=== PATIENT | male | born 1940 | race Caucasian/White ===

== ENCOUNTER 2017-09-13 09:30 | Outpatient (RCR) | payer MEDICARE, SELFPAY ==
--- NOTE | 2017-08-23 12:15 | HP.PTEVAL ---
Patient's Visit Information GILBERT ROMO is a 77 year old M referred to Physical Therapy by VIKTORIYA LEIVA with a diagnosis of L forearm pain. Date of Evaluation: 08/23/17 Physical Therapist: Adele Le - Visit Plan Frequency: 2x /Week Duration: 4 Weeks Plan: 2X/ week for 3 weeks for L elbow and wrist strengthening, may incorporate postural and shoutlder strength, modalities and MT for pain control with HEP - Subjective Subjective: This elbow pain started last April. If he would roll his elbow on the table he would get elbow pain. and then the pain went away. Then a few weeks ago he would get medial olecranon pain. He feels the pain when he pushes down to get up from a chair. Dr said to take IBprof as necessary and then take PT and then go to orthopedic if no better. Only did x-rays the first time. Not sure what it showed. Pt has a physical in a few weeks with MD. The pt has no neck pain. Occ he has R arm tingling sesation but not consistent. 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 His arm has not slowed him down at all. - Pain L elbow pain Pain Intensity (Out of 10): 0 Pain Intensity Range: 4 - Objective UE AROM elbow and shoulder are WFL. B shld flex 4/5 and B shld abd 4/5, L bicep 4-/5 and R 4/5, L tricep 4/5 and R 4/5, L wrist extension 4-/5 and R, R wrist flex 4/5, L pronation (+ weird feeling/ache and slight weakness with pronation on the L) R pronation 4/5, - Goals Goal 1:: I HEP Goal Time Frame: 4-6 Weeks Goal 2:: Decrease L elbow pain when pushing self up from a seated position to 1/10 50% of the time Goal Time Frame: 4-6 Weeks Goal 3:: Increase L pronation and wrist flexion strength to 4/5 without pain with MMT testing Goal Time Frame: 4-6 Weeks - Rehabilitation Potential Rehabilitation Potential: Good - Anticipated Interventions Patient/Client Instruction: Educate patient on: Condition, Plan of Care For the Purpose of:: To decrease pain, To increase ROM, To improve nutrient delivery to tissue, To improve muscle performance and motor function, To improve ability to perform ADL's, To increase tolerance to activity/condition/position, To improve performance and independence with ADL's, To improve health of tissue Therapeutic Exercise to Include: Strength training, Postural training, Active ROM, Scapular Strength/Stabilization For the Purpose of:: To decrease pain, To increase ROM, To improve nutrient delivery to tissue, To improve muscle performance and motor function, To improve ability to perform ADL's, To improve performance and independence with ADL's, To decrease level of supervision to perform tasks Manual Therapy Techniques to Include: Soft tissue mobilization For the Purpose of:: To decrease pain, To increase ROM, To improve nutrient delivery to tissue Cryotherapy (ice pack, ice massage): Yes Thermo therapy (hot pack): Yes Ultrasound (thermal/non thermal): Yes For the Purpose of:: To decrease pain, To increase ROM, To improve nutrient delivery to tissue Thank you for the opportunity to evaluate your patient. For Medicare and Medicare HMO plans, please review the plan of care and approve it. It will need to be FAXED BACK to us at [phone] for Medicare purposes. Please let me know if there are questions or concerns regarding this plan of care. Physician Signature: Date:
--- NOTE | 2017-09-13 10:04 | HP.PTDCSUM ---
HP - PT D/C Summary It has been my pleasure to treat GILBERT ROMO under orders from AARON VASQUEZ MICHELLE for the diagnosis of L forearm pain for a total of 7 visit(s). Discharge Date: 09/13/17 Please see the following information for a summary of their discharge status. - Subjective Subjective: Pt reports that he overall thinks it is getting better. Dr thinks that his elbow will clear up on its own. He reports that he usually has no pain after his PT appointments and then a little sore the next day. He reports that he wants to be done with PT at this time and see how this goes as he has lots of other Dr appointments. Somedays it doesnt bother him at all. Pt reports that he can do his exercises at home with wights and or orange t-band - Pain L elbow pain Pain Intensity (Out of 10): 3 - Overall Improvement % Improvement: 25 - Objective Objective/Function: Pt reports that he can do most of these exercises at [facility] and wants to continue to do that. - Goals Goal 1:: I HEP Goal Progress: Goal Met Goal 2:: Decrease L elbow pain when pushing self up from a seated position to 1/10 50% of the time Goal Progress: Goal Met Goal 3:: Increase L pronation and wrist flexion strength to 4/5 without pain with MMT testing Goal Progress: Goal Met - Plan Plan: DC PT to HEP but if pain worsesns or comes back. Will be happy to see pt back in PT with a new order if happens to worsen or come back. - D/C Information Discharge Comments: DC PT to HEP If there are questions or concerns regarding this patient's physical therapy, please feel free to call me at [phone]. Thank you for the referral of this patient. Sincerely, Adele Le
== END 2017-09-13 19:00 | disposition home or self-care (01) ==
LOC: PT 09:30
PROVIDERS: Family Provider Family Medicine; PCP Family Medicine
DX: M25.522 Pain in left elbow (principal)
CPT/HCPCS: 97110; 97140; 97161; 97530

== ENCOUNTER → 2020-03-10 09:40 | Outpatient (CLI) | payer MEDICARE, SELFPAY ==
[2017-04-07 21:52] VITALS: BMI 29.2
[2020-03-10 10:40] LABS: PSA,Total- Diagnostic 0.37 ng/mL (0.0-4.0)
== END ==
PROVIDERS: Referring Provider Urology; Visit Provider Urology
DX: C61 Malignant neoplasm of prostate (principal)
CPT/HCPCS: 36415; 84153

== ENCOUNTER → 2020-08-27 12:24 | Outpatient (CLI) | payer MEDICARE, SELFPAY ==
[2020-08-27 12:49] LABS: Hematocrit 38.4 % (40-54); Hemoglobin 13.7 g/dL (13.0-16.5); Mean Corp Hgb Conc 35.7 g/dL (32-36); Mean Corpuscular Hgb 36.1 pg (27.0-32.0); Mean Corpuscular Volume 101.3 fL (80-94); Mean Platelet Vol. 10.2 fl (6.2-12.0); Platelet Count 210 K/mm3 (150-450); RBC Distribution Width CV 13.2 % (11.6-14.6); RBC Distribution Width SD 47.5 fl (35.1-43.9); Red Blood Count 3.79 M/mm3 (4.6-6.2)
[2020-08-27 13:07] LABS: Vitamin D,25 Hydroxy 43.8 ng/mL
[2020-08-27 13:11] LABS: ALB/GLOB Ratio 1.2 RATIO (0.9-2.4); AST(SGOT) 16 U/L (15-37); Alanine Aminotransfer ALT/SGPT 24 U/L (16-61); Albumin, Serum 3.9 g/dL (3.2-5.0); Alkaline Phosphatase 82 U/L (45-117); Anion Gap 7 (5-15); BUN 16 mg/dL (7-18); BUN/Creat Ratio 15.7 RATIO (10-20); Calcium,Total 9.1 mg/dL (8.5-10.1); Chloride 106 mmol/L (98-107); Cholesterol 174 mg/dL (200); Creatinine, Serum 1.02 mg/dL (0.70-1.30); EST Glomerular Filtration Rate 75 mL/min (>60); Est Glom Filt Rate - Afr Amer 91 mL/min (>60); Globulin 3.3 g/dL (2.2-4.2); Glucose 95 mg/dL (74-106); High Density Lipoprotein 51 mg/dL; PSA,Total- Diagnostic 0.61 ng/mL (0.0-4.0); Protein, Total 7.2 g/dL (6.4-8.2); Sodium Level 140 mmol/L (136-145); Triglycerides 92 mg/dL; Very Low Density Lipoprotein 18 mg/dL (5-40)
== END ==
PROVIDERS: Referring Provider Nurse Practitioner Family; Visit Provider Nurse Practitioner Family
DX: C61 Malignant neoplasm of prostate (principal); E55.9 Vitamin D deficiency, unspecified; E78.5 Hyperlipidemia, unspecified
CPT/HCPCS: 80053; 80061; 82306; 84153; 85027

== ENCOUNTER → 2020-09-10 12:29 | Outpatient (CLI) | payer MEDICARE, SELFPAY ==
[2017-04-07 21:52] VITALS: BMI 29.2
[2020-09-10 13:04] LABS: PSA,Total - Annual Screen 0.58 ng/mL (0.00-4.00)
== END ==
PROVIDERS: Referring Provider Family Medicine; Visit Provider Family Medicine
DX: C61 Malignant neoplasm of prostate (principal); Z12.5 Encounter for screening for malignant neoplasm of prostate
CPT/HCPCS: 84153; G0103

== ENCOUNTER → 2022-03-08 | Outpatient (CLI) | payer MEDICARE, SELFPAY ==
[2022-03-08 12:09] LABS: PSA,Total- Diagnostic 0.84 ng/mL (0.0-4.0)
== END | disposition home or self-care (01) ==
PROVIDERS: PCP Family Medicine; Visit Provider Urology
DX: C61 Malignant neoplasm of prostate (principal)
CPT/HCPCS: 36415; 84153

== ENCOUNTER 2022-07-08 14:20 | Observation (INO) | payer MEDICARE, SELFPAY ==
[2022-07-08 14:22] VITALS: BP 158/70; PULSE 100; RESP 16; TEMP 36.4; O2SAT 99; BMI 27.8
--- NOTE | 2022-07-08 14:30 | CT_ITS ---
STUDY: CT BRAIN WITHOUT CONTRAST REASON FOR EXAM: Male, 82 years old. 2 hour history of dizziness with vomiting. RADIATION DOSAGE (If Supplied By Facility): CTDIvol = ( 44.99 ) mGy, DLP = ( 863.60 ) mGycm TECHNIQUE: Transaxial CT imaging of the brain was performed without administration of intravenous contrast material. Individualized dose optimization techniques were used for this CT. COMPARISON: Comparison is made with prior study dated 12/20/2013. FINDINGS: Normal soft tissue structures. Normal calvarium. There is mild cerebral atrophy with widening of the extra-axial spaces and ventricular dilatation. There are areas of decreased attenuation within the white matter tracts of the supratentorial brain, consistent with microvascular disease changes. Normal basal ganglia and thalami. Normal brainstem. Normal cerebellum. There is no intracranial hemorrhage. There are no findings of an acute ischemic infarction. Mild mucosal thickening of the ethmoid sinuses slightly more prominent on the left side. CT/Brain/Head without Contrast IMPRESSION: Chronic involutional changes of the brain. Electronically Signed: Jose Doe MD at 15:06 EST ,
--- NOTE | 2022-07-08 14:32 | EDS_ITS ---
HPI History of Present Illness Chief Complaint: Dizziness Informant: patient Onset/Context/Timing Onset: Hours (about 2 hrs ago as estimated by the pt) Context: Sudden Onset Timing: Waxes and wanes Quality: spinning, moving, lightheadedness Location: head Current Severity: Moderate Maximum Severity: Severe Worsened by: movement I think Relieved by: nothing Associated Symptoms Associated Symptoms: n/v, weak all over Narrative Narrative: Patient presents for extreme dizziness and vomiting. He is a very poor historian, he states he does not feel well because of this. He felt fine a couple hours ago before this started, he states he was in [place] trying to get some gauges tested for some type of steam engine, he states he was walking to the bathroom and started feeling dizzy all of a sudden, it has been waxing and waning since then, he drove himself here from there [place], states he has had this before, he states it was vertigo when he had it before, but cannot say it is the same thing now, he states he feels like things are moving and he feels lightheaded. He has had no loss of consciousness today. He denies any headaches. He denies any peripheral numbness or focal weakness or changes in his vision, but states now that he is here he is starting to have some decreased hearing although he has chronic tinnitus that is unchanged. He states he takes aspirin on occasion, and happened to take it this morning because I was having headaches and then when trying to discern how often he takes aspirin, he states his doctor put him on it 20 years ago but then admits that he does not take it every day. Patient answers lots of questions with maybe, I do not know, is very difficult to get details out of him when reviewing details of his symptoms today. He does state that he has been on an antibiotic for the past 2 weeks because of infected wounds on his right lower leg, he states still a little red and sore but gradually improving. [facility] Medical History (Updated 07/08/22 @ 16:[address] Ayaan Watson MD) BPPV (benign paroxysmal positional vertigo) Dizziness History of prostate cancer Home Medications aspirin 81 mg chewable tablet 81 mg PO DAILY@0800 06/22/13 [History Last Taken 0 11/26/16] cholecalciferol (vitamin D3) 50 mcg (2,000 unit) tablet (Vitamin D3) 2,000 unit PO DAILY 06/22/13 [History Last Taken 11/26/16] bicalutamide 50 mg tablet 50 mg PO DAILY PROSTATE 07/08/22 [History Last Taken 07/08/22] cephalexin 500 mg capsule 500 mg PO 4XD ANTIBIOTIC 07/08/22 [History Last Taken 07/08/22] cyanocobalamin (vitamin B-12) 100 mcg tablet 100 mcg PO DAILY SUPPLEMENT 07/08/22 [History Last Taken 07/08/22] multivitamin 1 tab PO DAILY SUPPLEMENT 07/08/22 [History Last Taken 07/08/22] sulfamethoxazole 800 mg-trimethoprim 160 mg tablet 1 tab PO BID ANTIBIOTIC 07/08/22 [History Last Taken 07/08/22] Allergy/AdvReac Type Severity Reaction Status Date / Time No Known Allergies Allergy Verified 07/08/22 14:26 Social History Smoking Status: Never smoker ROS [facility] ED Constitutional Constitutional ED: Reports malaise; Denies chills or fever(s) Eyes Eyes: Denies change in vision or diplopia ENT ENT ED: Reports as per HPI, tinnitus and vertigo; Denies ear pain, rhinorrhea or sore throat Cardiovascular Cardiovascular: Reports lightheadedness; Denies chest pain, leg edema or palpitations Respiratory/Chest Respiratory/Chest: Denies cough or dyspnea Gastrointestinal Gastrointestinal: Reports nausea and vomiting; Denies abdominal pain or diarrhea Genitourinary Genitourinary ED: Denies dysuria or hematuria Musculoskeletal Musculoskeletal: Denies back pain or neck pain Integumentary Reports as per HPI, rash and wounds; Denies abscess Neurologic Neurologic: Denies headache(s), paresthesias or weakness Psychiatric Psychiatric: Denies anxiety or suicidal thoughts EXAM Physical Exam Const Vital Signs: 07/08/22 14:22 07/08/22 14:42 07/08/22 16:21 Temperature 97.5 F L Temperature Source Temporal Pulse Rate 100 79 Respiratory Rate 16 15 Respiratory Effort Normal Non-Labored Respiratory Pattern Normal Blood Pressure 158/70 H 125/61 H Blood Pressure Mean 99 82 Pulse Ox 99 100 Oxygen Delivery Method Room Air Room Air 07/08/22 16:50 Temperature 97.6 F L Temperature Source Oral Pulse Rate 69 Respiratory Rate 17 Respiratory Effort Respiratory Pattern Blood Pressure 124/63 H Blood Pressure Mean 83 Pulse Ox 100 Oxygen Delivery Method Room Air Positive well nourished and well developed Constitutional Narrative: Appears very malaised but alert and in no distress General Appearance ED: well developed and NAD HEENT Reports moist mucous membranes HEENT Narrative: TMs and EACs normal bilaterally normocephalic and atraumatic Eyes PERRL and EOMs intact bilaterally Eyes Narrative: No pathologic horizontal or vertical/rotatory nystagmus Neck full ROM and supple Neck Narrative: No meningismus but does not want to move his head because of dizziness Chest Wall inspection of chest normal and palpation of chest normal Resp normal respiratory effort and clear to auscultation bilaterally Cardio regular rate, regular rhythm and no murmurs Rate: other Other Details: Occasional irregularity, occurring frequently but for the most part rhythm is regular GI non-tender and non-distended Auscultation: normoactive bowel sounds Palpation: soft Back/Spine no CVA tenderness General Back: other FROM Extremity normal to inspection General Extremety ED: Negative for edema, pulses abnormal or tenderness General Extremity: Negative for edema or pulses abnormal Neuro oriented x3, CN's II-XII intact bilaterally and no sensory deficits noted Neuro Narrative: Normal [id number] and [id number] bilaterally. NIHSS 0 Sensorium / Orientation: awake and alert Motor Exam: strength 5/5 throughout Skin Skin Narrative: 2 scabbed wounds that are superficial anterior right distal lower leg not involving the ankle joint, there is surrounding erythema with a skin marking pen line drawn around it, the erythema is well within the skin line and a little away from it, no major tenderness, no palpable subcutaneous emphysema no edema no distention of any compartments in the right lower extremity. MDM MDM MDM Narrative Medical decision making narrative: Patient appears to be very vertiginous and feeling very poorly. He states the symptoms are severe and he cannot move. Work-up shows a negative CT. I do not know if this is central or peripheral, my exam is very limited on this gentleman. He does not want to move. He said it was relatively sudden onset and severe lending itself more toward peripheral etiology especially with the hearing disturbance he is having acutely. He was given Zofran and meclizine after passing a dysphagia screen, he did feel little improved but he was way too unsteady to walk on his own or drive himself home, saying he still very symptomatic although he is no longer vomiting. I believe that his hypokalemia may be due to hyperventilation as the patient was miserable and anxious upon arrival, as opposed to GI losses since he had just been vomiting for an hour or so. Discussed with Dr. Calhoun Hospitalist for admission to observation. Lab Data Attestation: I reviewed the patient's lab results. Labs: Laboratory Results - last 24 hr 07/08/22 07/08/22 14:30 14:30 WBC 7.6 RBC 3.90 L Hgb 13.2 Hct 37.8 L MCV 96.9 H MCH 33.8 H MCHC 34.9 RDW Std Deviation 45.1 H RDW Coeff of Sweta 12.7 Plt Count 244 MPV 9.9 Immature Gran % (Auto) 0.300 Neut % (Auto) 68.3 Lymph % (Auto) 20.1 [place] % (Auto) 7.9 Eos % (Auto) 2.5 Baso % (Auto) 0.9 Absolute Neuts (auto) 5.2 Absolute Lymphs (auto) 1.53 Nucleated RBC % 0 Sodium 138 Potassium 3.3 L Chloride 105 Carbon Dioxide 19.0 L Anion Gap 14 BUN 20 H Creatinine 1.49 H Estim Creat Clear Calc 42.68 Est GFR (MDRD) Af Amer 58 L Est GFR (MDRD) Non-Af 48 L BUN/Creatinine Ratio 13.4 Glucose 167 H Calcium 9.3 Radiography Diagnostic Testing: Clinical Impression(s) from Imaging Studies Brain CT 07/08/22 14:30 IMPRESSION: Chronic involutional changes of the brain. Electronically Signed: Jose Doe MD at 15:06 EST , Discharge Plan Dx/Rx/DC Orders Clinical Impression: Acute severe vertigo Disposition Disposition: Acute Care [facility]
[2022-07-08] MEDS: Ondansetron 4 MG/2 ML Vial IV (14:36)
[2022-07-08] MEDS: Meclizine HCl 25 MG Tablet PO (14:37)
[2022-07-08 14:39] LABS: Absolute Lymphocyte Count 1.53 X10^3/uL (0.83-4.51); Absolute Neutrophil Count 5.2 X10^3/uL (2.0-7.7); Basophil# 0.07 X10^3/uL; Basophil% 0.9 % (0-1); Eosinophil# 0.19 X10^3/uL; Eosinophils% 2.5 % (0-5); Hematocrit 37.8 % (40-54); Hemoglobin 13.2 g/dL (13.0-16.5); Lymphocyte # 1.53 X10^3/ul (0.83-4.51); Lymphocyte % 20.1 % (19-41); Mean Corp Hgb Conc 34.9 g/dL (32-36); Mean Corpuscular Hgb 33.8 pg (27.0-32.0); Mean Corpuscular Volume 96.9 fL (80-94); Mean Platelet Vol. 9.9 fl (6.2-12.0); Monocyte% 7.9 % (0-10); NRBC Flagged by Analyzer 0 % (0-5); Neutrophil # 5.21 X10^3/uL (2.7-7.7); Neutrophil % 68.3 % (47-70); Platelet Count 244 K/mm3 (150-450); RBC Distribution Width CV 12.7 % (11.6-14.6); RBC Distribution Width SD 45.1 fl (35.1-43.9); White Blood Count 7.6 K/mm3 (4.4-11.0)
[2022-07-08 15:01] LABS: Anion Gap 14 (5-15); BUN 20 mg/dL (7-18); BUN/Creat Ratio 13.4 RATIO (10-20); Calcium,Total 9.3 mg/dL (8.5-10.1); Chloride 105 mmol/L (98-107); Creatinine, Serum 1.49 mg/dL (0.70-1.30); EST Glomerular Filtration Rate 48 mL/min (>60); Est Glom Filt Rate - Afr Amer 58 mL/min (>60); Estimated Creatinine Clearance 42.68 ml/min; Glucose 167 mg/dL (74-106); Potassium 3.3 mmol/L (3.5-5.1); Sodium Level 138 mmol/L (136-145)
[2022-07-08 16:21] VITALS: BP 125/61; PULSE 79; RESP 15; O2SAT 100
--- NOTE | 2022-07-08 16:45 | ED.RN ---
Pt assisted x1 to the restroom. Stating he felt lightheaded/dizzy. Dr. Watson updated.
[2022-07-08 16:50] VITALS: BP 124/63; PULSE 69; RESP 17; TEMP 36.4; O2SAT 100
--- NOTE | 2022-07-08 17:01 | ED.RN ---
Attempted to call pts son per pt request. No answer. Message left.
--- NOTE | 2022-07-08 17:10 | PCM.HP.STD ---
HPI - General General Date of Admission: 07/08/22 Date of Service: 07/08/22 Chief Complaint: Dizziness HPI Narrative GILBETR ROMO, is a 82 M who presents with dizziness. Began around 12 today. Patient was at a store in [place] where he became dizzy. Did get better but then drove himself to the emergency room from [place] here. Dizziness has been positional but also with rapid eye movements. Patient has had this before but never hospitalized for this. To try to get the patient up in the emergency room and he was still very dizzy and unsteady and given his unsteadiness, advanced age that he lives by himself, the hospitalist service was contacted for admission. [facility] Medical History BPPV (benign paroxysmal positional vertigo) Dizziness History of prostate cancer Home Medications aspirin 81 mg chewable tablet 81 mg PO DAILY@0800 06/22/13 [History Last Taken 07/08/22] cholecalciferol (vitamin D3) 50 mcg (2,000 unit) tablet (Vitamin D3) 2,000 unit PO DAILY 06/22/13 [History Last Taken 07/08/22] bicalutamide 50 mg tablet 50 mg PO DAILY PROSTATE 07/08/22 [History Last Taken 07/08/22] cephalexin 500 mg capsule 500 mg PO 4XD ANTIBIOTIC 07/08/22 [History Last Taken 07/08/22] cyanocobalamin (vitamin B-12) 100 mcg tablet 100 mcg PO DAILY SUPPLEMENT 07/08/22 [History Last Taken 07/08/22] multivitamin 1 tab PO DAILY SUPPLEMENT 07/08/22 [History Last Taken 07/08/22] sulfamethoxazole 800 mg-trimethoprim 160 mg tablet 1 tab PO BID ANTIBIOTIC 07/08/22 [History Last Taken 07/08/22] Allergy/AdvReac Type Severity Reaction Status Date / Time No Known Allergies Allergy Verified 07/08/22 14:26 Family History (Updated 07/08/22 @ 17:[address] Uriel Calhoun DO) Other CVA (cerebral vascular accident) Social History Smoking Status: Never smoker ROS ROS Narrative He did have some nausea and some dry heaves. Does have healing wounds on his right lower extremity which developed a cellulitis. The erythema overall is improving. He has been on antibiotics for the past 10 days. All review of systems were negative except as mentioned above in the history of present illness and the other review of systems. Vital Signs Vital Signs Vital Signs: 07/08/22 14:22 07/08/22 14:42 07/08/22 16:21 Temperature 36.4 C L Temperature Source Temporal Pulse Rate 100 79 Respiratory Rate 16 15 Respiratory Effort Normal Non-Labored Respiratory Pattern Normal Blood Pressure 158/70 H 125/61 H Blood Pressure Mean 99 82 Pulse Ox 99 100 Oxygen Delivery Method Room Air Room Air 07/08/22 16:50 Temperature 36.4 C L Temperature Source Oral Pulse Rate 69 Respiratory Rate 17 Respiratory Effort Respiratory Pattern Blood Pressure 124/63 H Blood Pressure Mean 83 Pulse Ox 100 Oxygen Delivery Method Room Air Weight Weight: 93.304 kg Body Mass Index (BMI) 27.8 Physical Exam Narrative - Physical Exam General: Alert, Oriented x3, Cooperative HEENT: Atraumatic, EOMI, Normocephalic Oral: Moist Mucosa, No Gingival or Mucosal Lesions/ Ulcerations Neck: Supple, No JVD, Negative Carotid Bruits Lungs: Clear to auscultation, Normal air movement Cardiovascular: Regular rate, Normal S1, Normal S2, No murmurs Abdomen: Bowel Sounds Present, Soft, Non Tender, Non-Distended, No Hepato-splenomegaly Extremities: No clubbing, No cyanosis, No edema, Capillary Refill Less than 3 Seconds Skin: Resolving erythema on his or other extremity. Does have healed wounds on his anterior graham. Musculoskeletal: No Tenderness to Palpation of Joints or Extremities Neurological: Neuro grossly intact. Tics Hallpike was performed and was negative. No reproducible with dizziness nor nystagmus. Psych/Mental Status: Normal Affect, Appropriate Results Lab / Micro Data Attestation: I reviewed the patient's lab results. Result Diagrams: 07/08/22 14:30 07/08/22 14:30 Labs: Laboratory Results - last 24 hr 07/08/22 14:30: WBC 7.6, RBC 3.90 L, Hgb 13.2, Hct 37.8 L, MCV 96.9 H, MCH 33.8 H, MCHC 34.9, RDW Std Deviation 45.1 H, RDW Coeff of Sweta 12.7, Plt Count 244, MPV 9.9, Immature Gran % (Auto) 0.300, Neut % (Auto) 68.3, Lymph % (Auto) 20.1, [place] % (Auto) 7.9, Eos % (Auto) 2.5, Baso % (Auto) 0.9, Absolute Neuts (auto) 5.2, Absolute Lymphs (auto) 1.53, Nucleated RBC % 0 07/08/22 14:30: Sodium 138, Potassium 3.3 L, Chloride 105, Carbon Dioxide 19.0 L, Anion Gap 14, BUN 20 H, Creatinine 1.49 H, Estim Creat Clear Calc 42.68, Est GFR (MDRD) Af Amer 58 L, Est GFR (MDRD) Non-Af 48 L, BUN/Creatinine Ratio 13.4, Glucose 167 H, Calcium 9.[address] 07/08/22 14:30 IMPRESSION: Chronic involutional changes of the brain. Electronically Signed: Jose Doe MD at 15:06 EST , Assessment & Plan Assessment/Plan (1) Acute severe vertigo: PLAN: Slowly improved with patient still unsteady Continue with the meclizine and antiemetics as needed Therapy for vestibular rehab (2) Cellulitis of right lower extremity: PLAN: Prior to this presentation Overall improving Continue with cephalexin and Bactrim PLAN: Plan Chronic conditions Prostate cancer: Continue with bicalutamide VTE prophylaxis: Not indicated given observation status. Charges/Coding Visit Charges Inpatient E&M: 67095 Init Hosp L2
[2022-07-08 17:31] VITALS: BMI 26.4
[2022-07-08 17:35] VITALS: BP 135/72; PULSE 71; RESP 18; TEMP 36.4; O2SAT 100
[2022-07-08] MEDS: Cephalexin 500 MG Capsule PO ×2 (17:57→23:57)
[2022-07-08 18:00] VITALS: O2SAT 100
[2022-07-08 23:35] VITALS: BP 123/67; PULSE 72; RESP 20; TEMP 36.4; O2SAT 98
[2022-07-08] MEDS: Smz/Tmp Ds Tablet 1 TABLET PO (23:57)
[2022-07-09 05:23] VITALS: BP 118/59; PULSE 69; RESP 20; TEMP 36.7; O2SAT 97
[2022-07-09] MEDS: Cephalexin 500 MG Capsule PO (05:27)
--- NOTE | 2022-07-09 08:50 | PCM.PN.HOSP ---
Objective Data Objective Data Vital Signs: Vital Signs Temp Pulse Resp BP Pulse Ox O2 Del Method 98.0 F 69 20 H 118/59 L 97 Room Air 07/09/22 05:23 07/09/22 05:23 07/09/22 05:23 07/09/22 05:23 07/09/22 05:23 07/09/22 05:23 Oxygen Delivery Method Room Air Weight: 91.1 kg Body Mass Index (BMI) 26.4 Intake & Output: Intake and Output for Last 24 Hours 07/07/22 07/08/22 07/09/22 23:59 23:59 23:59 Intake Total 380 / 380 Balance 380 / 380 Lab / Micro Data Result Diagrams: 07/08/22 14:30 07/08/22 14:30 Labs: Laboratory Results - last 24 hr 07/08/22 14:30: WBC 7.6, RBC 3.90 L, Hgb 13.2, Hct 37.8 L, MCV 96.9 H, MCH 33.8 H, MCHC 34.9, RDW Std Deviation 45.1 H, RDW Coeff of Sweta 12.7, Plt Count 244, MPV 9.9, Immature Gran % (Auto) 0.300, Neut % (Auto) 68.3, Lymph % (Auto) 20.1, [place] % (Auto) 7.9, Eos % (Auto) 2.5, Baso % (Auto) 0.9, Absolute Neuts (auto) 5.2, Absolute Lymphs (auto) 1.53, Nucleated RBC % 0 07/08/22 14:30: Sodium 138, Potassium 3.3 L, Chloride 105, Carbon Dioxide 19.0 L, Anion Gap 14, BUN 20 H, Creatinine 1.49 H, Estim Creat Clear Calc 42.68, Est GFR (MDRD) Af Amer 58 L, Est GFR (MDRD) Non-Af 48 L, BUN/Creatinine Ratio 13.4, Glucose 167 H, Calcium 9.3 Radiography Diagnostic Testing: Radiology Impression Brain CT 07/08/22 14:30 IMPRESSION: Chronic involutional changes of the brain. Electronically Signed: Jose Doe MD at 15:06 EST , Assessment & Plan Assessment/Plan (1) Acute severe vertigo: (2) Cellulitis of right lower extremity:
[2022-07-09] MEDS: Smz/Tmp Ds Tablet 1 TABLET PO (09:59)
[2022-07-09] MEDS: Aspirin 81 MG TAB.CHEW PO (09:59)
[2022-07-09] MEDS: Potassium Chloride Oral Tablet 10 MEQ PO (09:59)
--- NOTE | 2022-07-09 10:19 | DCINST_ITS ---
Discharge Instructions Diet Discharge Diet: No restrictions Activity Discharge Activity: Return to Normal Activity Follow Up Care Test Results: Test results from this visit will be discussed in further detail at your follow- up appointment, if applicable. Discharge Plan Admission Admit Date/Time: 07/08/22 17:07 Primary Reason for Your Visit: Vertigo Attending Provider: Salma Cano Primary Care Provider: Gigi Ojeda Consulting Providers: Uriel Calhoun Instructions Patient Instructions: ED Vertigo, Unspecified Additional Instructions / Restrictions: He will be given a prescription for vestibular rehab on discharge. A prescription for meclizine to take as needed has been sent to your preferred pharmacy on file Please continue your other home medications Insert basic discharge instructions Discharge Orders/Prescriptions Prescriptions: New meclizine 12.5 mg Tablet 12.5 mg PO TID PRN PRN (Reason: vertigo) 3 Days Qty: 15 0RF Continued aspirin 81 MG tablet,chewable 81 mg PO DAILY@0800 Label Comments: Thins Blood cholecalciferol (vitamin D3) [Vitamin D3] 2,000 UNIT tablet 2,000 unit PO DAILY Label Comments: Supplement multivitamin Tablet 1 tab PO DAILY bicalutamide 50 mg tablet 50 mg PO DAILY Label Comments: TAKE 1 TABLET BY MOUTH ONCE DAILY cyanocobalamin (vitamin B-12) 100 mcg Tablet 100 mcg PO DAILY sulfamethoxazole-trimethoprim 800-160 mg tablet 1 tab PO BID Label Comments: TAKE 1 TABLET BY MOUTH TWICE DAILY FOR 10 DAYS cephalexin 500 mg capsule 500 mg PO 4XD Label Comments: TAKE 1 CAPSULE BY MOUTH 4 TIMES DAILY FOR 10 DAYS Referrals / Follow Up: Gigi Ojeda MD [Primary Care Provider] - Disposition Disposition (needs filled in before D/C Order can be placed): Home, Self Care
--- NOTE | 2022-07-09 10:22 | DS.PCM_ITS ---
Providers Date of Admission: 07/08/22 Date of Discharge: 07/09/22 Primary Care Physician: Dr. Gigi Ojeda MD Reason For Visit: INTRACTABLE VERTIGO Diagnosis Discharge Diagnosis (1) Acute severe vertigo: Status: Acute Code(s): R42 - Dizziness and giddiness (2) Cellulitis of right lower extremity: Status: Acute Code(s): L03.115 - Cellulitis of right lower limb Plan #Acute severe vertigo #Cellulitis of right lower extremity #History of prostate cancer on bicalutamide Medications at Discharge Home Medications aspirin 81 mg chewable tablet 81 mg PO DAILY@0800 06/22/13 cholecalciferol (vitamin D3) 50 mcg (2,000 unit) tablet (Vitamin D3) 2,000 unit PO DAILY 06/22/13 bicalutamide 50 mg tablet 50 mg PO DAILY PROSTATE 07/08/22 cephalexin 500 mg capsule 500 mg PO 4XD ANTIBIOTIC 07/08/22 cyanocobalamin (vitamin B-12) 100 mcg tablet 100 mcg PO DAILY SUPPLEMENT 07/08/22 multivitamin 1 tab PO DAILY SUPPLEMENT 07/08/22 sulfamethoxazole 800 mg-trimethoprim 160 mg tablet 1 tab PO BID ANTIBIOTIC 07/08/22 meclizine 12.5 mg tablet 12.5 mg PO TID PRN PRN vertigo 3 days #15 tabs 07/09/22 Hospital Course Summary of Care Provided Minutes Spent on Discharge: 20 Hospital Course: As per HPI 07/08/22 GILBERT ROMO, is a 82 M who presents with dizziness.? Began around 12 today.? Patient was at a store in [place] where he became dizzy.? Did get better but then drove himself to the emergency room from [place] here.? Dizziness has been positional but also with rapid eye movements.? Patient has had this before but never hospitalized for this.? To try to get the patient up in the emergency room and he was still very dizzy and unsteady and given his unsteadiness, advanced age that he lives by himself, the hospitalist service was contacted for admission. Interim history: Symptoms resolved overnight and had no further complaints in the morning. Was requesting discharge so he could go to his primary care physician appointment at 11 AM. Staff got up and walked him and he was no longer unsteady or dizzy. Patient was discharged with a prescription for meclizine and a prescription for vestibular rehab in stable condition. Physical Exam Narrative General: Alert, oriented, no apparent distress HEENT: Atraumatic, normocephalic Eyes: Anicteric, normal conjunctiva, extraocular movements intact, pupils equal and round Neck: Supple Respiratory: Clear to auscultation bilaterally, normal respiratory effort Cardiovascular: Regular rate and rhythm GI: Soft, nontender, nondistended Extremities: No edema Musculoskeletal: Moving all extremities Neuro: No overt focal neurological deficits, finger-nose without difficulty Skin: Has 2 small scrapes on anterior graham of right leg that are marked with what appears to be receding erythema Psych: Cooperative Weight / BMI Weight Weight: 91.1 kg Body Mass Index (BMI) 26.4 ABG / Lab / Microbiology Data Result Diagrams: 07/08/22 14:30 07/08/22 14:30 Laboratory: Laboratory Results - last 24 hr 07/08/22 14:30: WBC 7.6, RBC 3.90 L, Hgb 13.2, Hct 37.8 L, MCV 96.9 H, MCH 33.8 H, MCHC 34.9, RDW Std Deviation 45.1 H, RDW Coeff of Sweta 12.7, Plt Count 244, MPV 9.9, Immature Gran % (Auto) 0.300, Neut % (Auto) 68.3, Lymph % (Auto) 20.1, Williams % (Auto) 7.9, Eos % (Auto) 2.5, Baso % (Auto) 0.9, Absolute Neuts (auto) 5.2, Absolute Lymphs (auto) 1.53, Nucleated RBC % 0 07/08/22 14:30: Sodium 138, Potassium 3.3 L, Chloride 105, Carbon Dioxide 19.0 L , Anion Gap 14, BUN 20 H, Creatinine 1.49 H, Estim Creat Clear Calc 42.68, Est GFR (MDRD) Af Amer 58 L, Est GFR (MDRD) Non-Af 48 L, BUN/Creatinine Ratio 13.4, Glucose 167 H, Calcium 9.3 Radiography Diagnostic Testing: Radiology Impression Brain CT 07/08/22 14:30 IMPRESSION: Chronic involutional changes of the brain. Electronically Signed: Jose Doe MD at 15:06 EST , D/C Instructions Discharge Diet: No restrictions Meaningful Use Info Meaningful Use Diagnoses (Choose all that apply): None applicable Discharge Plan Admission Admit Date/Time: 07/08/22 17:07 Primary Reason for Your Visit: Vertigo Attending Provider: Salma Cano Primary Care Provider: Gigi Ojeda Consulting Providers: Uriel Calhoun Instructions Patient Instructions: ED Vertigo, Unspecified Additional Instructions / Restrictions: He will be given a prescription for vestibular rehab on discharge. A prescription for meclizine to take as needed has been sent to your preferred pharmacy on file Please continue your other home medications -Please call your primary care provider's office upon discharge to schedule a hospital follow up within 1 week. -For any concerning signs or symptoms please call 911 or proceed to the nearest emergency department Discharge Orders/Prescriptions Prescriptions: New meclizine 12.5 mg Tablet 12.5 mg PO TID PRN PRN (Reason: vertigo) 3 Days Qty: 15 0RF Continued aspirin 81 MG tablet,chewable 81 mg PO DAILY@0800 Label Comments: Thins Blood cholecalciferol (vitamin D3) [Vitamin D3] 2,000 UNIT tablet 2,000 unit PO DAILY Label Comments: Supplement multivitamin Tablet 1 tab PO DAILY bicalutamide 50 mg tablet 50 mg PO DAILY Label Comments: TAKE 1 TABLET BY MOUTH ONCE DAILY cyanocobalamin (vitamin B-12) 100 mcg Tablet 100 mcg PO DAILY sulfamethoxazole-trimethoprim 800-160 mg tablet 1 tab PO BID Label Comments: TAKE 1 TABLET BY MOUTH TWICE DAILY FOR 10 DAYS cephalexin 500 mg capsule 500 mg PO 4XD Label Comments: TAKE 1 CAPSULE BY MOUTH 4 TIMES DAILY FOR 10 DAYS Referrals / Follow Up: Gigi Ojeda MD [Primary Care Provider] - Disposition Disposition (needs filled in before D/C Order can be placed): Home, Self Care Charges/Coding Visit Charges Inpatient E&M: 01998 Disch Hosp
[2022-07-09 10:26] VITALS: BP 118/59; PULSE 69; RESP 20; TEMP 36.7; O2SAT 97
--- NOTE | 2022-07-09 10:36 | CASEMGMT ---
CLAUDIO DENISE updated that patient will need vestibular therapy at discharge. Script received and provided to patient with information card from [facility].
--- NOTE | 2022-07-09 12:16 | PHA.DC.MR ---
Pharmacy Service has performed discharge medication reconciliation for this patient. The patient's discharge medication list was reviewed for discrepancies and discrepancies were resolved. 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 Home Medications aspirin 81 mg chewable tablet 81 mg PO DAILY@0800 06/22/13 cholecalciferol (vitamin D3) 50 mcg (2,000 unit) tablet (Vitamin D3) 2,000 unit PO DAILY 06/22/13 bicalutamide 50 mg tablet 50 mg PO DAILY PROSTATE 07/08/22 cephalexin 500 mg capsule 500 mg PO 4XD ANTIBIOTIC 07/08/22 cyanocobalamin (vitamin B-12) 100 mcg tablet 100 mcg PO DAILY SUPPLEMENT 07/08/22 multivitamin 1 tab PO DAILY SUPPLEMENT 07/08/22 sulfamethoxazole 800 mg-trimethoprim 160 mg tablet 1 tab PO BID ANTIBIOTIC 07/08/22 meclizine 12.5 mg tablet 12.5 mg PO TID PRN PRN vertigo 3 days #15 tabs 07/09/22
== END 2022-07-09 10:21 | disposition home or self-care (01) ==
LOC: ED 16:53 → PCU 17:09
PROVIDERS: Emergency Provider Emergency Medicine; PCP Family Medicine; Visit Provider Internal Medicine
DX: R42 Dizziness and giddiness (principal); L03.115 Cellulitis of right lower limb; R51.9 Headache, unspecified; H93.19 Tinnitus, unspecified ear; Z79.899 Other long term (current) drug therapy; Z79.82 Long term (current) use of aspirin; Z85.46 Personal history of malignant neoplasm of prostate
CPT/HCPCS: 70450; 80048; 85025; 96374; 99221; 99285; G0378; J2405

== ENCOUNTER 2022-07-22 11:30 | Outpatient (RCR) | payer MEDICARE, SELFPAY ==
--- NOTE | 2022-07-15 14:06 | HP.PTEVAL_ITS ---
Patient's Visit Information GILBERT ROMO is a 82 year old M referred to Physical Therapy by Dr. Salma Cano MD with a diagnosis of vertigo. Date of Evaluation: 07/15/22 Physical Therapist: Uriel Morin, DPT, OCS, CSCS - Visit Plan Frequency: 1x/Week Duration: 4-6 Weeks Plan: weekly x 4-6 as needed for progression of adaptation ex as helpful. MSQ if needed. Monitor balance. - Subjective I am dizzy , like vertigo. Feels like may spin, black out or throw up. had this decades ago. Last , got dizzy and felt like throwing up as room started moving while he was walking. Got better and worse and went to ER. Wc in did not help as it made him motion sick. Lots of vomitting. had Catscan and it was normal for no storke or tumor. Gave meclizine. Better after a while but kept him overnight. Not bad the next day and went home. Drove himself. [place] decent adn went to latter day Tuesday. Got worse yesterday when about to go out to breakfast, went home and took meclizine and felt better. Was woozy this morning and almost cancelled but dizzy turning head to back into parking lot. Had some spinning last but not since. Sleep due to prostate CA is interrupted due to incontinence. Using cane to get around since last October. Has walker he uses in the garden. Retired. Spends day with hobbies of [employer], [employer], trains, family history. Has been sedentary for the last week though. - Objective Walks into and out of PT with cane mod I with short steps on L vs R. Transfers bed and chair I. steps prefers L up and recip down. One rail needed. Arthrits riddled throughout body and slow movement. Cervical aROm is full and painfree without dizzyness. - B hallpike chino position, - roll tests. Oculomotor: no nystagmus with gaze or head shake. pursuit appears normal. saccades are normal and asymptomatic. VOR is symptomatic 30 sec H 3/10 for 10 seconds. - ocular tilt. - skew eye deviation. + L head thrust slightly, - R head thrust. - Balance/Special Test Scores Functional Gait Assessment Score: 23 % Disability: 23.3400 Dizziness Score: 100 - Goals Goal 1:: Pt feel 99% better with dizzyness Goal Time Frame: 2-4 Weeks Goal 2:: FGa to limit future problems Goal Time Frame: 2-4 Weeks Goal 3:: DHI score 50% improved. Goal Time Frame: 2-4 Weeks - Rehabilitation Potential Physical Therapy Diagnosis: Possible unilateral vestibular hypofunction Rehabilitation Potential: Fair - Anticipated Interventions Patient/Client Instruction: Educate patient on: Condition, Plan of Care For the Purpose of:: To improve muscle performance and motor function, To increase tolerance to activity/condition/position, To improve ability of physical actions for home/community/work/leisure Therapeutic Exercise to Include: Balance training Comment: adaptation For the Purpose of:: To improve nutrient delivery to tissue, To increase tolerance to activity/condition/position, To improve ability of physical actions for home/community/work/leisure Thank you for the opportunity to evaluate your patient. For Medicare and Medicare HMO plans, please review the plan of care and approve it. It will need to be FAXED BACK to us at [phone] for Medicare purposes. For Medicare only, by signing this I certify the plan of care. Please let me know if there are questions or concerns regarding this plan of care. Physician Signature: Date:
--- NOTE | 2022-09-14 10:45 | HP.PT.NRP ---
GILBERT ROMO was seen in my office for initial evaluation on 07/15/22. The following Plan of Care was established for this patient: Initial Frequency: 1x/Week Initial Duration: 4-6 Weeks Patient/Client Instruction: Educate patient on: Condition, Plan of Care For the Purpose of:: To improve muscle performance and motor function, To increase tolerance to activity/condition/position, To improve ability of physical actions for home/community/work/leisure Therapeutic Exercise to Include: Balance training For the Purpose of:: To improve nutrient delivery to tissue, To increase tolerance to activity/condition/position, To improve ability of physical actions for home/community/work/leisure This patient was last seen in our office 07/22/22. Pertinent comments regarding their Physical therapy will appear below: Pt seen 2 visits of POC and treated with adaptation exercises as he had no positive positional tests. They did help but not completely. i spoke with him 3 weeks ago and he had seen doctor who wanted him to continue his HEP. he did not wish or think he needed to return to therapy. I will discontinue at this time. At this point I will be discontinuing this patient from physical therapy. I would be happy to see this patient again in the future if found appropriate by the physician. Thank you! Uriel Morin, DPT, OCS, CSCS Balance/Gait/Functional tests - Balance/Special Test Scores Functional Gait Assessment Score: 23 % Disability: 23.3400 Dizziness Score: 100
== END 2022-07-22 19:00 | disposition home or self-care (01) ==
LOC: PT 11:30
PROVIDERS: PCP Family Medicine; Referring Provider Internal Medicine; Visit Provider Family Medicine
DX: R42 Dizziness and giddiness (principal)
CPT/HCPCS: 97162; 97530

== ENCOUNTER 2022-10-13 10:30 | Outpatient (RCR) | payer MEDICARE, SELFPAY ==
--- NOTE | 2022-09-28 11:44 | HP.PTEVAL ---
Patient's Visit Information GILBERT ROMO is a 82 year old M referred to Physical Therapy by JEFFREY MONDRAGON with a diagnosis of cervicalgia , vertigo. Date of Evaluation: 09/28/22 Physical Therapist: Uriel Morin DPT, OCS, CSCS - Visit Plan Frequency: 2x /Week Duration: 4-6 Weeks Plan: 2x/week for 2-4 weeks to start for. 1. STM to cervical paraspinals, UT. 2. Cervical A/PROM exercises to HEP. 3. Teach general postural/cervical and core/LE strength ex if patient willing that he can do at home. Pt is old school obstinate and compliance may be an issue. Started todday by giving him postural coreection at computer with monitor at eye level and taught how to change brightness on computer screen. Pt to resume VOR exercises previously given at last chart H 60 seconds 4x/day - Subjective This is continuation of previous vestibular chart after visit with neurology. Was sent to another neurologist but appointment not until January. Dr. Miller wanted neck pain and see if vestibular further appropriate. Wants to continue adaptation ex adn have neck checked out. Symptoms have been present 12 weeks and insidious onset and describes pain in back of head and into neck. Not doing any adapatation ex at home, They may have helped a little at first but has not done them lately. On steroid and antibiotic from from ENT that is done this week. They have not helped yet. Some good days and some bad days. He does not know the pattern. Maybe weather. Wants to focus on neck today as he tried the exercises for vestibular. Did not help much. could not make it in to therapy as his bad days keep him from driving. Feels neck tight when he is on monitor alot. Symptoms are WATSON top and back of head 5/10 on bad days and 0 on good days. Not sure the pattern. Feels like cold sensation. Neck pain is on and off centrally feels mild discomfort. No scapular or arm pain or numbness or tingly. No weakness noted. Sleep is OK and lying feels good. Lightheaded is the description and no spinning. Avoids driving on bad day, sits alot on bad days and i t seems to help to relax. Rototilled garden and lifting that was challenging to back and neck. No falls, uses cane out and about but not at home. - Pain neck/head Pain Intensity (Out of 10): 1 Pain Intensity Range: 0, 5 - Objective Walks with short steps I on firm surface, shorter L step then R, mild SOB after walk and steps. Trasnfers I with UE, steps reciprocal with one rail, avoids FW weight shift. cervical AROM L rotation 55 adn r rotation 60, 45 extension, full flexion, no pain. UE AROM WFL , sensation WNL to gross light touch UE, reflexes 2/3 bi and tri, strength UE 4-/5 without pain. - c/.s compression. tender to palpation UT adn rhomboids B, not in deltoids. Posture is forward head and protracted scap, tends to lean into chair and scaral sit rather than use core muscles. Oculomotor: unremarkable today and unable to create any symptoms. Normal pursuit and saccades, normal VOR. - skew eye deviation, - ocular tilt. slight + R head thrust minimally. - Balance/Special Test Scores Functional Gait Assessment Score: 23 % Disability: 23.3400 Oswestry Neck Score: 6 - Goals Goal 1:: Patient feel WATSON, neck and lightheadedness 50% improved to 1/10 at worst adn mangeable Goal Time Frame: 4-6 Weeks Goal 2:: Pt exhibit appropriate posture without cueing Goal Time Frame: 2-4 Weeks Goal 3:: Oswestry score 1 or better Goal Time Frame: 4-6 Weeks - Rehabilitation Potential Physical Therapy Diagnosis: WATSON and slight neck pain, lightheadedness not clearly vestibular based on history of lack of improvement with treatment and eval today, cervical is possible contributor Rehabilitation Potential: Questionable - Anticipated Interventions Patient/Client Instruction: Educate patient on: Condition, Plan of Care For the Purpose of:: To decrease pain, To improve nutrient delivery to tissue, To improve ability of physical actions for home/community/work/leisure Therapeutic Exercise to Include: Strength training, Passive ROM, Active ROM, Scapular Strength/Stabilization For the Purpose of:: To decrease pain, To increase ROM, To improve nutrient delivery to tissue, To increase tolerance to activity/condition/position Manual Therapy Techniques to Include: Soft tissue mobilization For the Purpose of:: To decrease pain, To increase ROM, To improve nutrient delivery to tissue Thermo therapy (hot pack): Yes For the Purpose of:: To decrease pain Thank you for the opportunity to evaluate your patient. For Medicare and Medicare HMO plans, please review the plan of care and approve it. It will need to be FAXED BACK to us at [phone] for Medicare purposes. For Medicare only, by signing this I certify the plan of care. Please let me know if there are questions or concerns regarding this plan of care. Physician Signature: Date:
--- NOTE | 2022-10-18 10:53 | HP.PTDCSUM ---
It has been my pleasure to treat GILBERT ROMO referred by JEFFREY MONDRAGON, with the diagnosis of cervicalgia , vertigo for a total of 5 visit(s). Discharge Date: 10/18/22 Please see the following information for a summary of their discharge status. Subjective: Will see Deysi next week. neuro appointment is in January. Had negative tests for parkinson's in past. No better with Dizzyness/unsteadiness. Still has good days and bad days for no obvious reason, still feels pressure in L ear slightly. Antibiotic may have started to help but may need more. Feeling is not spinning, just lightheaded some days. Neck feels about the same, maybe better some days. Sore some days and not others, usually mild. HEP: UT stretch, VOR ex and head turns for ROM. No falls. neck/head Pain Intensity (Out of 10): Unrated % Improvement: 0 Objective/Function: 55 L rotation adn 63 R rotation today, mild tightness, not painful. 40 extension without pain. VOR without symptom increased and needs VC for speed. UE AROM WFL. - B hallpike chino. VOR not symptomatic today. Ambulating solidly with a cane with fair balance. Pt with much rehashing of his overall symptoms today verbally in therapy and lack of progress. Goal 1:: Patient feel WATSON, neck and lightheadedness 50% improved to 1/10 at worst adn mangeable Goal Progress: Not Progressing Goal 2:: Pt exhibit appropriate posture without cueing Goal Progress: Goal Met Goal 3:: Oswestry score 1 or better Goal Progress: Not Progressing Plan: d/c, pt back to ENT next week. vestibualr ex and neck therapy not helping the symptoms he really wants fixed which is his lightheadedness in the am some days. Discharge Comments: Pt back to [facility] next week. will see neuro in a couple months. Not feeling any better with vestibular or neck PT as far as his lightheaded symptoms go. If there are questions or concerns regarding this patient's physical therapy, please feel free to call me at [phone]. Thank you for the referral of this patient. Sincerely, Uriel Morin, DPT, OCS, CSCS Balance/Gait/Functional tests - Balance/Special Test Scores Functional Gait Assessment Score: 23 % Disability: 23.3400 Oswestry Neck Score: 6
== END 2022-10-13 19:00 | disposition home or self-care (01) ==
LOC: PT 10:30
PROVIDERS: PCP Family Medicine; Referring Provider Physician Assistant Medical; Visit Provider Physician Assistant Medical
DX: R42 Dizziness and giddiness (principal); M54.2 Cervicalgia
CPT/HCPCS: 97140; 97162